=== PATIENT | female | born 1970 | race Caucasian/White ===

== ENCOUNTER → 2020-07-15 11:07 | Outpatient (CLI) | payer OTHER, SELFPAY ==
--- NOTE | ~2020-07-15 | MM_ITS ---
EXAMINATION: MM scrn kaleb implant BI w sonali HISTORY: Screening mammogram TECHNIQUE: Craniocaudal and mediolateral oblique 3-D tomosynthesis images with implant displacement a nd synthetic 2-D images were generated. Craniocaudal and mediolateral oblique views of the breasts wi thout implant displacement were obtained using full field digital mammography. CAD analysis was submi tted and interpreted. COMPARISON: No prior mammogram is available for comparison at this institution. BREAST PARENCHYMAL COMPOSITION: The breasts are heterogenously dense, which may obscure small masses. FINDINGS: There are breast implants. The left breast implant is collapsed. There are bilateral breast asymmetries in the lower inner quadrant of the right breast and medial aspect of the left breast on CC view. IMPRESSION: 1. Bilateral breast asymmetries. 2. Additional mammographic views and possible breast ultrasound are recommended. BI-RADS Category 0: Incomplete: Needs additional imaging evaluation. Reviewed, dictated and finalized at location [facility]. NURSE IMPRESSION: 1. Bilateral breast asymmetries. 2. Additional mammographic views and possible breast ultrasound are recommended . BI-RADS Category 0: Incomplete: Needs additional imaging evaluation.
== END ==
PROVIDERS: Visit Provider Surgery Plastic and Reconstructive Surgery
DX: Z12.31 Encounter for screening mammogram for malignant neoplasm of breast (principal); R92.8 Other abnormal and inconclusive findings on diagnostic imaging of breast
CPT/HCPCS: 77063; 77067

== ENCOUNTER → 2020-08-02 00:10 | Outpatient (CLI) | payer OTHER, SELFPAY ==
[2020-08-02 18:02] LABS: SARS-CoV-2 RNA PCR Negative
== END ==
PROVIDERS: Visit Provider Surgery Plastic and Reconstructive Surgery
DX: Z01.812 Encounter for preprocedural laboratory examination (principal); Z20.822 Contact with and (suspected) exposure to COVID-19
CPT/HCPCS: C9803; U0003; U0005

== ENCOUNTER 2020-08-05 08:01 | Day surgery (SDC) | payer OTHER, SELFPAY ==
[2020-08-05] VITALS (7 sets, daily range): BP systolic 130–157; BP diastolic 74–105; PULSE 71–97; RESP 12–21; TEMP 36.1–36.2; O2SAT 98–100; BMI 19.1
[2020-08-05] MEDS: LACTATED RINGERS 1,000 ML 30 ML IV CONT ×2 (08:29→12:53)
--- NOTE | 2020-08-05 08:36 | WPDANESEPPF ---
Anes - Initial Pre Proc Eval Procedure: Operation Date: 08/05/20 09:30 Proposed Procedures p Bilateral Breast Implant Exchange with Revision of Bilateral Inframammary Folds - Gareth Billingsley MD Date/Time: 08/05/20 08:36 Surgeon: Gareth Billingsley MD Pre Op Diagnosis: History of Bilateral Breast Augmentation Patient Data Age: 49 Gender: F Height: Weight: Allergies Allergy/AdvReac Type Severity Reaction Status Date / Time No Known Allergies Allergy Verified 07/28/20 09:10 Home Medications Medication Instructions Recorded Confirmed Type polyethylene glycol 3350 [Miralax] 17 g PO PRN 03/28/19 07/28/20 History docusate sodium 100 mg capsule 100 mg PO DAILY #14 cap 07/22/20 07/28/20 Rx ondansetron HCl 4 mg tablet 4 mg PO Q8H #28 tablet 07/22/20 07/28/20 Rx carisoprodol 350 mg tablet 350 mg PO TID PRN #21 tablet 07/23/20 07/28/20 Rx oxycodone-acetaminophen 5 mg-325 1 tablet PO Q6H PRN #15 tablet 07/23/20 07/28/20 Rx mg tablet Patient hx anesthesia problems: none Family hx anesthesia problems: none PMFSH Past Medical History Medical History Diverticulitis Diverticulosis Surgical History Surgical History History of arthroscopic surgery of shoulder Hx of augmentation mammoplasty Hx of cholecystectomy Status post total shoulder arthroplasty Family History Family History Mother Cervical cancer Atrial fibrillation Sibling Hypertension Social History Social History Smoking status: Never smoker Alcohol intake: unknown Substance use: never Living arrangements: with family Gender identity (if verbalized by the patient): Female Spiritual care concerns: No Anes - Eval Final PreProcedure Day of Procedure 08/05/20 08:36 Patient weight: normal Heart: regular rate and rhythm Lungs: clear to auscultation Airway: Mallampati scale class 1 Neurological: alert and oriented Last oral intake: >/= 8 hours ASA classification: I Emergent: no Anesthetic plan: proceed Anesthesia type and monitoring: general LMA and standard monitoring Other findings: TIVA Informed Consent: The patient's anesthetic plan and its attendant risks and benefits were discussed with the patient/family/POA. Questions were solicited and answers provided to the satisfaction of the patient/family/POA.
--- NOTE | 2020-08-05 10:06 | WPDHPUPDATE1 ---
History and Physical Update Update Date/Time: 08/05/20 10:06 History and Physical has been reviewed, including an updated exam of the patient. There are NO changes in the patient's condition. Risks, benefits, and alternatives have been discussed and questions answered. Patient agrees to proceed with procedure.
[2020-08-05] MEDS: ceFAZolin 2 GM/D5W 50 ML 2 GM/50 ML BAG IVPB (10:23)
[2020-08-05] MEDS: LIDO 1%/EPINEPHRINE 1:100,000 20 ML VIAL 30 ML INFILTRATE (12:57)
[2020-08-05] MEDS: fentaNYL CITRATE INJ (*CRX) 100 MCG/2 ML VIAL 25 MCG IV PUSH ×4 (13:10→13:30)
--- NOTE | 2020-08-05 13:10 | PM.PROC ---
Procedure Note - Detailed Date of procedure: 08/05/20 Pre-op diagnosis: History of Bilateral Breast Augmentation Ruptured left breast implant Post-op diagnosis: same Procedure performed: Bilateral breast implant exchange with adjustment of IMF Description of procedure: Preoperatively she had a ruptured left breast implant as well as significant descent of the right breast implant. She has elected to proceed with exchange of implants and adjustment IMF. She states bilateral she had significant nipple to fold distance. We went over the risks, benefits, alternatives in great detail. I want her to be very realistic about the risks involved as well as expectations. I was very up front honest about the complexity of this. She agrees to increase implant size that she has significant skin laxity and does have concern about residual skin laxity. I can never guarantee final implant size anything with a slight increase in implant size I can never guarantee that she will not have some degree of residual laxity. She understands her risk of revision is approximately 25% and this would be at her expense. I made sure answered all of her and her 's questions to their satisfaction and consent was obtained. She was marked in the preoperative holding area with her verification. She was taken to the operating room placed supine on the operating room table. Anesthesia was provided by anesthesiology and prepped and draped in a standard sterile fashion. Surgical time-out was taken. 1% lidocaine and 0.25% Marcaine with epinephrine was used anesthetize as a field block. A 15 blade used to make an incision around the previous scar which was removed. I continued dissection until the implants were identified. These were removed and were textured implants. These implants were 375 cc. She had very thin tissue overlying capsule to remove the capsule had cause significant risks this skin. These were also submuscular. As such minimal capsule was removed. The right no worrisome features. I irrigated with 3 L total of saline solution. Verified strict hemostasis. I completed bilateral lateral capsulorrhaphy as she has significant lateral migration. On the right side I completed IMF capsulorrhaphy as well. I then reinforced each of these with 2-0 PDS. I copiously irrigated with triple antibiotic Betadine solution. Throughout the procedure we had Tegaderm nipple Pritchard in place. Wash my gloves. Using a no-touch technique and Jennings funnel introduced the implants into pocket. Positioning. This was closed using 2-0 Vicryl and 3-0 Monocryl. Based on the preoperative markings in a full sitting position I estimated the IMF tissue to be removed. She had more redundancy on the right than the left. These were marked and verified after tailor tacking into place. I de-epithelialized this tissue and repaired after hemostasis was obtained with 2-0 Vicryl followed by 3-0 strata fix in a running subcuticular 4-0 Monocryl and tissue glue. Dressings were placed. Patient placed in a surgical bra. She was woken taken the PACU without difficulty. All instrument sponge counts were correct at the end of the case. Anesthesia: GLMA Surgeon: Gareth Billingsley MD Estimated blood loss (mL): 30 Drains: No Packing: No Pathology: none sent Complications: No immediate complications Condition: stable Disposition: PACU Findings: Old implants 375 cc textured saline. She had minimal tissue between the skin and capsule, also submuscular so capsulectomy was not completed. There were no worrisome features. New Implants Bilateral Natrelle Inspira SoftTouch Implants 320 cc Right REF# [id number] Left REF# [id number] SN [id number]
--- NOTE | 2020-08-05 14:02 | WPDANESPN ---
Anes - Prog Note Post-Op Date/Time: 08/05/20 14:02 Cardiovascular status: normal Respiratory status: normal Airway patency: baseline Mental status: baseline Post-Op hydration status: normal Vital Signs: Last Vital Signs Temp 36.1 C L 08/05/20 12:53 Pulse 87 08/05/20 13:48 Resp 18 08/05/20 13:48 BP 139/84 08/05/20 13:48 Pulse Ox 100 08/05/20 13:48 Pain Score (VAS): 0 I/O: Intake & Output 08/04/20 08/05/20 08/05/20 23:59 07:59 15:59 Intake Total 1000 Balance 1000 Post-procedural complaints: none Patient Feedback: Patient satisfied with anesthetic care.
[2020-08-05] MEDS: oxyCODONE HCL (*CRX) 5 MG TAB IR PO (14:17)
== END 2020-08-05 14:40 | disposition home or self-care (01) ==
PROVIDERS: Visit Provider Surgery Plastic and Reconstructive Surgery
PROC: (CPT 19342; principal; 2020-08-05 09:30)
DX: T85.49XA Other mechanical complication of breast prosthesis and implant, initial encounter (principal)
CPT/HCPCS: 19342

== ENCOUNTER 2023-06-26 08:11 | Emergency (ER) | payer OTHER, SELFPAY ==
--- NOTE | ~2023-06-26 | XR_ITS ---
[id number] DATE: 06/26/2023 08:50 INDICATION: Left lower rib pain for 2 days. No injury. TECHNIQUE: PA chest. 3 views of the left ribs. COMPARISON: None FINDINGS: There is slight angulation deformity at the distal aspect of the left eighth and ninth ribs consistent with acute virtually nondisplaced fractures. No other left rib fracture is noted. There is left glenohumeral joint replacement. Diffuse osteopenia. Mild thoracic dextro scoliosis. Normal heart size. No hilar or mediastinal enlargement. No pulmonary infiltrate or consolidation, ple ural effusion or pulmonary vascular congestion or pneumothorax. IMPRESSION: Subtle recent slightly angulated anterior left eighth and ninth rib fractures No evidence of pleural effusion or pneumothorax Reviewed, dictated and finalized at [facility] . Reviewed, dictated and finalized at [facility] [employer]
[2023-06-26 08:36] VITALS: BP 149/83; PULSE 82; RESP 16; TEMP 36.6; O2SAT 100
--- NOTE | 2023-06-26 08:44 | ED.GENADULT ---
HPI - General Adult General Chief complaint: Extremity Problem,Nontraumatic Stated complaint: lt side rib pain Source: patient Mode of arrival: ambulatory Limitations: no limitations History of Present Illness HPI narrative: 52 y/o female presented for c/o left sided rib pain, onset 2 days. States pain started after turning to left side and sitting up in bed that morning. Pain is constant and mild, but causes her difficulty sleeping. Rates pain 4/10 at worst. Denies known injury or recent lifting, pushing etc. Has not taken anything for pain stating she is 'holistic.' States she did internet research and is concerned for rib fracture or spleen problem. Denies dizziness, cp, palpitations, n/v/d/constipation, urinary complaints, hematochezia, or decreased appetite. Related Data Home Medications Medication Instructions Recorded Confirmed No Home Medications 06/26/23 06/26/23 Allergies Allergy/AdvReac Type Severity Reaction Status Date / Time No Known Allergies Allergy Verified 06/26/23 08:21 Review of Systems Review of Systems: CONSTITUTIONAL: Denies body aches, fever, chills, or sweats. CARDIOVASCULAR: Denies chest pain, palpitations, or edema. RESPIRATORY: Denies cough or dyspnea. GASTROINTESTINAL: Denies decreased appetite, abdominal pain, nausea, vomiting, or diarrhea. GENITOURINARY: Denies dysuria or hematuria. SKIN: Denies rash, itching, or wounds. MUSCULOSKELETAL: Reports left lower anterior rib pain Denies back pain, joint pain, or myalgia. NEUROLOGIC: Denies headache, numbness, tingling, or weakness. All systems reviewed & are unremarkable except as noted in HPI and below PMFSH Past Medical History Medical History Diverticulitis Diverticulosis Surgical History Surgical History History of arthroscopic surgery of shoulder Hx of augmentation mammoplasty Hx of cholecystectomy Status post total shoulder arthroplasty Family History Family History Mother Cervical cancer Atrial fibrillation Sibling Hypertension Social History Social History Smoking status: Never smoker Alcohol intake: unknown Substance use: never Living arrangements: with family Gender identity (if verbalized by the patient): Female Spiritual care concerns: No Comments At time of signature, I have reviewed and agree with nursing past medical, surgical, social and family history unless otherwise noted. Please see nursing chart for further information. There is no relevant family history pertinent to the presenting complaint Exam Narrative: GENERAL: Well-appearing NECK: Normal AROM. Supple. CHEST: No respiratory distress. Clear to auscultation. HEART: Regular rate and rhythm. No murmur appreciated. Normal peripheral pulses. ABDOMEN: Soft, nondistended, normal active bowel sounds. Tender under left ribs. MUSCULOSKELETAL: left anterior rib tenderness, c/w ribs 8-9 area. No deformity or bruising. EXTREMITIES: Normal range of motion. No edema. SKIN: Warm, dry, no rash. Capillary refill normal. Normal skin turgor. NEURO: No focal deficits. Alert and oriented x3. Gait steady. PSYCH: Normal affect. Course Course Emergency Course: Patient is aware of diagnosis, understands and agrees to treatment plan. Anticipatory guidance given. Patient agrees to follow-up as directed and is aware of reasons to seek care at the emergency department. Portions of this record may have been created with voice recognition software Level of Care: Express Care Visit Vital Signs Vital signs: Vital Signs Temperature 97.8 F 06/26/23 08:36 Pulse Rate 82 06/26/23 08:36 Respiratory Rate 16 06/26/23 08:36 Blood Pressure 149/83 H 06/26/23 08:36 Pulse Oximetry 100 06/26/23 08:36 Oxygen De
== END 2023-06-26 09:20 | disposition home or self-care (01) ==
PROVIDERS: Emergency Provider Nurse Practitioner Family
DX: S22.32XA Fracture of one rib, left side, initial encounter for closed fracture (principal); S27.9XXA Injury of unspecified intrathoracic organ, initial encounter
CPT/HCPCS: 71101; 99213; G0463